=== PATIENT | female | born 1970 | race Hispanic/Latino ===

== ENCOUNTER → 2018-08-02 | Outpatient (CLI) | payer OTHER | END | disposition home or self-care (01) | LOC: RAH 08:08 | PROVIDERS: ATTEND Obstetrics & Gynecology | DX: D25.9 Leiomyoma of uterus, unspecified (principal) | CPT/HCPCS: 76856 ==

== ENCOUNTER → 2019-11-29 | Outpatient (CLI) | payer OTHER | END | disposition home or self-care (01) | LOC: RAH 14:41 | PROVIDERS: ATTEND Obstetrics & Gynecology | DX: N60.01 Solitary cyst of right breast (principal); N60.02 Solitary cyst of left breast; N63.22 Unspecified lump in the left breast, upper inner quadrant; D24.1 Benign neoplasm of right breast; D24.2 Benign neoplasm of left breast; Z80.3 Family history of malignant neoplasm of breast | CPT/HCPCS: 76641; 77066 ==

== ENCOUNTER → 2021-02-12 | Outpatient (CLI) | payer OTHER | END | disposition home or self-care (01) | LOC: RAH 07:35 | PROVIDERS: ATTEND Obstetrics & Gynecology | DX: R92.8 Other abnormal and inconclusive findings on diagnostic imaging of breast (principal); D24.1 Benign neoplasm of right breast; D24.2 Benign neoplasm of left breast; Z80.3 Family history of malignant neoplasm of breast | CPT/HCPCS: 77066 ==

== ENCOUNTER 2021-02-14 10:40 | Inpatient (IN) | payer OTHER ==
[~2021-02-14] VITALS: Ht 170.2 cm; Wt 81.0 kg
[2021-02-14 11:37] LABS: BASOPHILS % (AUTO) 0.6 % (0.0-5.0); EOSINOPHILS % (AUTO) 0.2 % (0.0-8.0); HEMATOCRIT 40.4 % (36-48); LYMPHOCYTES % (AUTO) 14.9 % (21.0-51.0); MEAN CORPUSCULAR HEMOGLOBIN 30.8 pg (27.0-33.0); MEAN CORPUSCULAR HGB CONC 33.7 g/dL (32.0-36.0); MEAN CORPUSCULAR VOLUME 91.6 fL (79-99); MONOCYTES % (AUTO) 6.6 % (3.0-13.0); NEUTROPHILS % (AUTO) 77.4 % (40.0-77.0); PLATELET COUNT (AUTO) 340 K/uL (130-400); RED BLOOD CELL COUNT(AUTO) 4.41 MIL/uL (4.00-5.50); RED CELL DISTRIBUTION WIDTH 13.1 % (11.0-15.5); WHITE BLOOD COUNT (AUTO) 6.2 K/uL (4.8-10.8)
[2021-02-14] MEDS ORDERED: CEFAZOLIN SODIUM 1 GM VIAL IVP SCH (13:00)
[2021-02-20 09:27] VITALS: BP 137/63
[2021-02-20] MEDS ORDERED: DEXT10TA4 PO (09:28)
[2021-02-21] VITALS (22 sets, daily range): BP systolic 112–144; BP diastolic 48–76
[2021-02-21] MEDS ORDERED: LACTATED RINGERS 1000ML 1,000 ML IV ONE (06:59)
[2021-02-21] MEDS ORDERED: MIDAZOLAM HCL 1 MG/ML 2ML VIAL ONE (07:31)
[2021-02-21] MEDS ORDERED: DEXAMETHASONE SOD PHOSPHATE 10MG/ML 1ML VIAL ONE (07:31)
[2021-02-21] MEDS ORDERED: LIDOCAINE PF 100MG/5ML (2%) SYRINGE 5ML ONE (07:31)
[2021-02-21] MEDS ORDERED: SUCCINYLCHOLINE CHLORIDE 20 MG/ML 10 ML VIAL ONE (07:31)
[2021-02-21] MEDS ORDERED: ROCURONIUM 10MG/1ML SYR 10 MG/ML ML ONE (07:32)
[2021-02-21] MEDS ORDERED: NEOSTIGMINE 5MG/5ML SYR IV ONE (07:32)
[2021-02-21] MEDS ORDERED: ONDANSETRON 4MG INJ ONE ×2 (07:32→10:47)
[2021-02-21] MEDS ORDERED: PROPOFOL 10 MG/ML 20ML VIAL IV ONE (07:32)
[2021-02-21] MEDS ORDERED: GLYCOPYRROLATE 1 MG/5 ML SYRINGE ONE (07:32)
[2021-02-21] MEDS ORDERED: FENTANYL CITRATE PF 50 MCG/1 ML 2ML VIAL ONE ×3 (07:32→10:08)
[2021-02-21] MEDS ORDERED: HYDROCODONE/ACETAMINOPHEN 5/325 MG TAB PO PRN (10:15)
[2021-02-21] MEDS ORDERED: PROMETHAZINE HCL 25 MG/ML 1ML AMPULE IM PRN ×2 (10:15)
[2021-02-21] MEDS ORDERED: ONDANSETRON 4MG INJ IVP PRN (10:15)
[2021-02-21] MEDS ORDERED: BISACODYL 10 MG SUPP.RECT RC PRN ×2 (10:15)
[2021-02-21] MEDS ORDERED: SIMETHICONE 80 MG TAB.CHEW PO PRN ×2 (10:15)
[2021-02-21] MEDS ORDERED: DIPH,PERTUSS(ACELL),TET VAC/PF 0.5 ML VIAL IM SCH (10:15)
[2021-02-21] MEDS ORDERED: MEPERIDINE-PF 75 MG/ML SYG IM PRN (10:15)
[2021-02-21] MEDS ORDERED: DOCUSATE SODIUM 100 MG CAP PO PRN ×2 (10:15)
[2021-02-21] MEDS ORDERED: ACETAMINOPHEN WITH CODEINE 1 TAB TAB PO PRN (10:15)
[2021-02-21] MEDS ORDERED: MEPERIDINE-PF 25 MG/ML SYG ONE ×2 (10:24→10:34)
[2021-02-21] MEDS ORDERED: CALDOLOR 800MG+NS 250ML 250 ML IV ONE (11:23)
[2021-02-21] MEDS: CALDOLOR 800MG+NS 250ML 250 ML IVPB SCH ×2 (11:26→18:51)
[2021-02-21] MEDS: ACETAMINOPHEN WITH CODEINE 1 TAB TAB PO PRN ×3 (12:49→21:31)
[2021-02-21] MEDS: DEXTROSE 5 %-0.45 % NACL 1,000 ML IV PRN ×2 (15:01→21:39)
[2021-02-22] MEDS: CALDOLOR 800MG+NS 250ML 250 ML IVPB SCH (03:08)
[2021-02-22 03:27] VITALS: BP 109/47
[2021-02-22] MEDS: DEXTROSE 5 %-0.45 % NACL 1,000 ML IV PRN (06:41)
[2021-02-22 07:25] VITALS: BP 103/60
[2021-02-22] MEDS: ACETAMINOPHEN WITH CODEINE 1 TAB TAB PO PRN (08:40)
[2021-02-22] MEDS ORDERED: IBUPROFEN 800 MG TAB PO SCH (10:15)
== END 2021-02-22 11:15 | disposition home or self-care (01) | DRG 743 ==
LOC: DAHIP 02-21 06:37 → EDSTATUS 02-21 09:26 → WSH 02-21 11:10
PROVIDERS: ADMIT Obstetrics & Gynecology; ATTEND Obstetrics & Gynecology
PROC: 0UT90ZZ Resection of Uterus, Open Approach (ICD-10-PCS; 2021-02-21)
PROC: 0UT00ZZ Resection of Right Ovary, Open Approach (ICD-10-PCS; principal; 2021-02-21 08:23)
PROC: 0UT50ZZ Resection of Right Fallopian Tube, Open Approach (ICD-10-PCS; 2021-02-21 08:23)
DX: D25.9 Leiomyoma of uterus, unspecified (principal); N73.6 Female pelvic peritoneal adhesions (postinfective); D27.0 Benign neoplasm of right ovary; Z20.822 Contact with and (suspected) exposure to COVID-19
CPT/HCPCS: 36415; 85025; 86850; 86900; 86901; 90715; A4344; G0378; J0330; J0690; J1100; J1741; J2001; J2175; J2250; J2405; J2550; J2704; J2710; J3010; J3490; J7120; U0003

== ENCOUNTER 2021-09-16 23:35 | Observation (INO) | payer OTHER ==
[~2021-09-16] VITALS: Ht 170.2 cm; Wt 75.3 kg
[~2021-09-16 23:35] MED LIST: DEXT10TA4 PO
[2021-09-17] VITALS (23 sets, daily range): BP systolic 94–141; BP diastolic 46–82
[2021-09-17] LABS: BASOPHILS % (AUTO) 0.8 % (0.0-5.0); EOSINOPHILS % (AUTO) 3.5 % (0.0-8.0); HEMATOCRIT 40.3 % (36-48); LYMPHOCYTES % (AUTO) 25.6 % (21.0-51.0); MEAN CORPUSCULAR HEMOGLOBIN 30.9 pg (27.0-33.0); MEAN CORPUSCULAR HGB CONC 33.3 g/dL (32.0-36.0); MEAN CORPUSCULAR VOLUME 92.9 fL (79-99); MONOCYTES % (AUTO) 8.4 % (3.0-13.0); NEUTROPHILS % (AUTO) 61.4 % (40.0-77.0); PLATELET COUNT (AUTO) 310 K/uL (130-400); RED BLOOD CELL COUNT(AUTO) 4.34 MIL/uL (4.00-5.50); RED CELL DISTRIBUTION WIDTH 12.2 % (11.0-15.5); WHITE BLOOD COUNT (AUTO) 7.4 K/uL (4.8-10.8)
[2021-09-17 00:09] LABS: CREATININE 0.9 mg/dL (0.5-1.5); POTASSIUM 3.3 mmol/L (3.5-5.1)
[2021-09-17 00:10] LABS: INR 0.95 (0.85-1.15); PROTHROMBIN TIME 10.4 SEC (9.6-11.6)
[2021-09-17] MEDS ORDERED: ZOSYN 3.375GM +NS 50ML IV STA (00:11)
[2021-09-17 00:14] LABS: ALBUMIN 3.9 g/dL (3.5-5.0); BILIRUBIN,TOTAL 0.2 mg/dL (0.2-1.0); TOTAL PROTEIN, SERUM 7.3 g/dL (6.0-8.3)
[2021-09-17] MEDS ORDERED: LIDOCAINE HCL MPF 1% 5ML VIAL ONE (01:26)
[2021-09-17] MEDS ORDERED: SUCCINYLCHOLINE CHLORIDE 20 MG/ML 10 ML VIAL ONE (01:26)
[2021-09-17] MEDS ORDERED: MIDAZOLAM HCL 1 MG/ML 2ML VIAL ONE (01:26)
[2021-09-17] MEDS ORDERED: PROPOFOL 10 MG/ML 20ML VIAL IV ONE (01:26)
[2021-09-17] MEDS ORDERED: ROCURONIUM 10MG/1ML SYR 10 MG/ML ML ONE (01:26)
[2021-09-17] MEDS ORDERED: FENTANYL CITRATE PF 50 MCG/1 ML 2ML VIAL ONE (01:27)
[2021-09-17] MEDS ORDERED: ESTROGENS,CONJUGATED 0.625 MG/GM 42.5 GM VAG CRM VG ONE (02:19)
[2021-09-17] MEDS ORDERED: SUGAMMADEX SODIUM 200 MG/2 ML VIAL IV ONE (02:28)
[2021-09-17] MEDS ORDERED: MEPERIDINE-PF 25 MG/ML SYG ONE (02:55)
[2021-09-17] MEDS ORDERED: ONDANSETRON 4MG INJ IVP PRN (03:00)
[2021-09-17] MEDS: ZOSYN 3.375GM +NS 50ML IV SCH ×3 (03:00→17:40)
[2021-09-17] MEDS ORDERED: MEPERIDINE-PF 100 MG/ML SYG IM PRN (03:00)
[2021-09-17] MEDS ORDERED: BISACODYL 10 MG SUPP.RECT RC PRN (03:00)
[2021-09-17] MEDS ORDERED: PROMETHAZINE HCL 25 MG/ML 1ML AMPULE IM PRN ×2 (03:00)
[2021-09-17] MEDS ORDERED: ACETAMINOPHEN WITH CODEINE 1 TAB TAB PO PRN ×2 (03:00→16:30)
[2021-09-17] MEDS ORDERED: CALDOLOR 800MG+NS 250ML 0 ML IV ONE (03:58)
[2021-09-17] MEDS ORDERED: MEPERIDINE-PF 75 MG/ML SYG ONE (04:04)
[2021-09-17] MEDS ORDERED: CALDOLOR 800MG+NS 250ML 250 ML IV ONE ×2 (04:23→23:28)
[2021-09-17] MEDS: DEXTROSE 5 %-0.45 % NACL 1,000 ML IV PRN (04:30)
[2021-09-17] MEDS ORDERED: ESTRADIOL 0.1 MG/24 HR PATCH (WEEKLY) TD SCH (09:00)
[2021-09-17] MEDS: SIMETHICONE 80 MG TAB.CHEW PO PRN (09:36)
[2021-09-17] MEDS: CALDOLOR 800MG+NS 250ML 250 ML IV SCH ×2 (14:17→19:00)
[2021-09-18] MEDS: ZOSYN 3.375GM +NS 50ML IV SCH ×3 (01:41→18:44)
[2021-09-18 03:16] VITALS: BP 92/60
[2021-09-18 06:16] LABS: HEMATOCRIT 34.9 % (36-48); MEAN CORPUSCULAR HEMOGLOBIN 30.5 pg (27.0-33.0); MEAN CORPUSCULAR HGB CONC 33.2 g/dL (32.0-36.0); MEAN CORPUSCULAR VOLUME 91.8 fL (79-99); RED BLOOD CELL COUNT(AUTO) 3.8 MIL/uL (4.00-5.50); RED CELL DISTRIBUTION WIDTH 12.3 % (11.0-15.5); WHITE BLOOD COUNT (AUTO) 8.8 K/uL (4.8-10.8)
[2021-09-18 06:30] LABS: ALBUMIN 2.7 g/dL (3.5-5.0); BILIRUBIN,TOTAL 0.6 mg/dL (0.2-1.0); POTASSIUM 3.6 mmol/L (3.5-5.1); TOTAL PROTEIN, SERUM 5.9 g/dL (6.0-8.3)
[2021-09-18] MEDS: DEXTROSE 5 %-0.45 % NACL 1,000 ML IV PRN (06:50)
[2021-09-18 07:12] VITALS: BP 116/60
[2021-09-18] MEDS: SIMETHICONE 80 MG TAB.CHEW PO PRN (08:29)
[2021-09-18 11:01] VITALS: BP 124/73
[2021-09-18 16:42] VITALS: BP 122/70
[2021-09-18 19:25] VITALS: BP 109/80
[2021-09-18] MEDS: IBUPROFEN 800 MG TAB PO PRN (20:41)
[2021-09-18 23:18] VITALS: BP 112/58
[2021-09-19 03:00] VITALS: BP 96/59
[2021-09-19] MEDS: ZOSYN 3.375GM +NS 50ML IV SCH ×2 (03:01→11:00)
[2021-09-19 07:18] VITALS: BP 117/71
[2021-09-19] MEDS ORDERED: IBUP-2077 PO (10:45)
[2021-09-19] MEDS ORDERED: ACET1TAB25 PO (10:46)
[2021-09-19] MEDS: IBUPROFEN 800 MG TAB PO PRN (11:10)
== END 2021-09-19 11:30 | disposition home or self-care (01) ==
LOC: EDH 23:35 → EDHIP 09-17 00:20 → WSH 09-17 03:45
PROVIDERS: ADMIT Obstetrics & Gynecology; ATTEND Obstetrics & Gynecology
DX: N89.5 Stricture and atresia of vagina (principal); Z20.822 Contact with and (suspected) exposure to COVID-19; T81.32XA Disruption of internal operation (surgical) wound, not elsewhere classified, initial encounter; H91.90 Unspecified hearing loss, unspecified ear; Z90.710 Acquired absence of both cervix and uterus; Z97.4 Presence of external hearing-aid; Z98.891 History of uterine scar from previous surgery
CPT/HCPCS: 36415 ×2; 44120; 57120; 74018; 80053 ×2; 85025; 85027; 85610; 87635; 96365; 96366 ×4; 96367; 99284; A4344; A4930; G0378 ×58; J0330; J1741 ×3; J2175 ×2; J2250; J2543 ×7; J2550; J2704; J3010; J3490

== ENCOUNTER → 2023-07-24 | Outpatient (CLI) | payer OTHER ==
[~2023-07-24] MED LIST changes: +ACET-2079 PO; +IBUP-2077 PO
== END | disposition home or self-care (01) ==
LOC: RAH 07:43
PROVIDERS: ATTEND Obstetrics & Gynecology
DX: N60.01 Solitary cyst of right breast (principal); N60.02 Solitary cyst of left breast; D24.1 Benign neoplasm of right breast; D24.2 Benign neoplasm of left breast; R92.2 Inconclusive mammogram
CPT/HCPCS: 77066